=== PATIENT | male | born 1955 | race Native Hawaiian/Other Pacific Islander ===

== ENCOUNTER 2021-04-29 07:52 | Outpatient (CLI) | payer OTHER | END 2021-04-29 18:56 | disposition home or self-care (01) | LOC: NM 07:52 | PROVIDERS: ATTEND Nurse Practitioner Family | DX: K21.9 Gastro-esophageal reflux disease without esophagitis (principal); K30 Functional dyspepsia | CPT/HCPCS: A9537 ==